=== PATIENT | female | born 1945 | race Caucasian/White ===

== ENCOUNTER 2016-09-18 10:53 | Outpatient (CLI) | payer MEDICARE, OTHER ==
[2016-01-30 18:26] VITALS: BP 149/77
== END 2016-09-18 10:55 ==
LOC: POD 10:53
PROVIDERS: ATTEND Podiatrist Public Medicine
DX: L84 Corns and callosities (principal); M79.671 Pain in right foot; M79.672 Pain in left foot
CPT/HCPCS: G0463

== ENCOUNTER 2017-01-01 09:36 | Outpatient (CLI) | payer MEDICARE, OTHER ==
[2016-01-30 18:26] VITALS: BP 149/77
== END 2017-01-01 09:37 ==
LOC: POD 09:36
PROVIDERS: ATTEND Podiatrist Public Medicine
DX: L84 Corns and callosities (principal); M79.671 Pain in right foot; M79.672 Pain in left foot; M20.11 Hallux valgus (acquired), right foot; M20.12 Hallux valgus (acquired), left foot; M20.41 Other hammer toe(s) (acquired), right foot; M20.42 Other hammer toe(s) (acquired), left foot
CPT/HCPCS: G0463

== ENCOUNTER 2017-09-03 08:43 | Outpatient (CLI) | payer MEDICARE, OTHER ==
[2016-01-30 18:26] VITALS: BP 149/77
== END 2017-09-03 08:44 ==
LOC: POD 08:43
PROVIDERS: ATTEND Podiatrist Public Medicine
DX: L84 Corns and callosities (principal); M77.41 Metatarsalgia, right foot; M79.671 Pain in right foot; M79.672 Pain in left foot; M20.11 Hallux valgus (acquired), right foot; M20.12 Hallux valgus (acquired), left foot; M20.41 Other hammer toe(s) (acquired), right foot; M20.42 Other hammer toe(s) (acquired), left foot
CPT/HCPCS: G0463

== ENCOUNTER 2017-12-03 08:55 | Outpatient (CLI) | payer MEDICARE, OTHER ==
[2016-01-30 18:26] VITALS: BP 149/77
== END 2017-12-03 08:56 ==
LOC: POD 08:55
PROVIDERS: ATTEND Podiatrist Public Medicine
DX: L84 Corns and callosities (principal); M77.41 Metatarsalgia, right foot; M79.671 Pain in right foot; M79.672 Pain in left foot; M20.11 Hallux valgus (acquired), right foot; M20.12 Hallux valgus (acquired), left foot; M20.41 Other hammer toe(s) (acquired), right foot; M20.42 Other hammer toe(s) (acquired), left foot
CPT/HCPCS: 11721; G0463

== ENCOUNTER 2018-03-18 09:47 | Outpatient (CLI) | payer MEDICARE, OTHER ==
[2016-01-30 18:26] VITALS: BP 149/77
== END 2018-03-18 09:50 ==
LOC: POD 09:47
PROVIDERS: ATTEND Podiatrist Public Medicine
DX: L84 Corns and callosities (principal); Z09 Encounter for follow-up examination after completed treatment for conditions other than malignant neoplasm; M77.41 Metatarsalgia, right foot; M79.671 Pain in right foot; M79.672 Pain in left foot; M20.11 Hallux valgus (acquired), right foot; M20.12 Hallux valgus (acquired), left foot; M20.41 Other hammer toe(s) (acquired), right foot; M20.42 Other hammer toe(s) (acquired), left foot
CPT/HCPCS: 11721; G0463